=== PATIENT | male | born 1960 | race Caucasian/White ===

== ENCOUNTER 2024-01-07 13:26 | Emergency (ER) | payer MEDICARE, SELFPAY ==
[2024-01-07 13:30] VITALS: BP 163/96
[2024-01-07 15:45] VITALS: BP 158/96
[2024-01-07 15:46] VITALS: BMI 19.9
[2024-01-07] MEDS: TORADOL 15 MG IV (16:07)
[2024-01-07 16:23] LABS: % Basophils 0.8 % (0-2); % Eosinophils 1.4 % (0-6); % Immature Granulocytes 0.2 % (0-0.5); % Lymphocytes 35.1 % (20.5-51.1); % Monocytes 6.8 % (1.7-9.3); % Neutrophils 55.7 % (42.2-75.2); Absolute Basophils 0.1 10^3/uL (0-0.2); Absolute Eosinophils 0.1 10^3/uL (0-0.7); Absolute Monocytes 0.6 10^3/uL (0.1-0.6); Absolute Neutrophils 4.8 10^3/uL (1.4-6.5); Hematocrit 34.5 % (39.0-52.0); Hemoglobin 11.2 g/dL (13.0-18.0); Mean Corp Hgb Conc. 32.5 g/dL (33.0-37.0); Mean Corpuscular Hgb 24.8 pg (27.0-31.0); Mean Corpuscular Volume 76.3 fL (80.0-94.0); Mean Platelet Volume 10.1 fL (7.4-10.4); Nucleated Red Blood Cells % 0 % (-); Platelet Count 346 10^3/uL (130-400); Red Blood Cell Count 4.52 10^6/uL (4.70-6.10); White Blood Cell Count 8.7 10^3/uL (4.8-10.8)
[2024-01-07 16:43] LABS: ALT (SGPT) 15 U/L (0-50); AST (SGOT) 27 U/L (17-59); Albumin 4.5 g/dl (3.5-5.0); Alkaline Phosphatase 138 U/L (38-126); Blood Urea Nitrogen 8 mg/dl (9-20); Calcium 9.8 mg/dl (8.4-10.2); Carbon Dioxide 23 mmol/L (22-30); Chloride 91 mmol/L (98-107); Estimated Creatinine Clearance 85 ml/min; Glucose 87 mg/dl (70-99); Sodium 125 mmol/L (135-145); Total Bilirubin 0.5 mg/dl (0.2-1.3); Total Protein 7.5 g/dl (6.3-8.2); eGFR > 60.00
[2024-01-07] MEDS: ANUSOL HC 25 MG RECTAL (16:52)
--- NOTE | 2024-01-07 16:56 | ED.GENMED ---
History of Present Illness
General
Chief Complaint: Anal/Rectal Problem
Source: patient
Exam Limitations: none
Time Seen by Provider: 01/07/24 15:46
Nursing documentation reviewed up to this point in time: agreed with
Travel History
Have you had any contact with someone who has COVID-19?: No
Do you have any symptoms of coronavirus? Fever > 100 degrees, chills, cough, shortness of breath, sore throat, loss of taste or smell, muscle aches, or headache?: No
History of Present Illness
History of Present Illness:
Patient to ED wt complaint of painful rectal lump. States symptoms started 1 week ago. He continues to strain in attempt to pass stool and reports lump becomes larger. Also with complaint of low back pain. States he fell 3 weeks ago but did
not have discomfort until this week. Brought to ED by sister for eval.
Past History
Past History
ED Past Medical History: Other (History of heroin abuse)
ED Past Surgical History: Other
Social History
Tobacco: Non-smoker
Alcohol: None
Drug: Former user
Personal: Single
Review of Systems
Review of Systems
Allergies reviewed?: Yes
All Other Systems: ROS reviewed and negative except as documented in HPI and ROS
Constitutional: Reports no symptoms
EENT: Reports no symptoms
Respiratory: Reports no symptoms
Cardiac: Reports no symptoms
ABD/GI: Reports other (painful rectal lump)
: Reports no symptoms
Musculoskeletal: Reports joint pain (sacral pain)
Skin: Reports no symptoms
Neurological: Reports no symptoms
Psychiatric: Reports no symptoms
Phy Exam
General Physical Exam
General Presentation: well appearing and no apparent distress
General age: appears stated age
General Skin: warm and dry
General Habitus: normal
General Mental: alert
Gastrointestinal Exam
Gastrointestinal Exam: normal bowel sounds, non tender, soft, no organomegaly, non distended and no cva tenderness
Rectal Exam: normal external exam, normal sphincter tone, hemorrhoids (soft flat external hemorrhoids, no rectal tenderness), no rectal mass and no stool
Musculoskeletal Exam
Musculoskeletal Exam: full ROM and neuro vasc intact
Skin Exam
Skin Exam: normal color, warm/dry and no rash
Psychiatric Exam
Psychiatric Exam: normal mood/affect
Course
Orders/Labs/Results
Orders:
Orders
01/07/24 15:59
Lumbar Spine Complete, 4 View [CR Lumbar Spine Comp Min 4 Vw*] Urgent
Comment:
Reason For Exam: pain
Sacrum/Coccyx 2 View CR [CR Sacrum/coccyx Min 2 View] Urgent
Comment:
Reason For Exam: pain
01/07/24 16:01
Ketorolac [Toradol] 15 mg IV NOW STA
01/07/24 16:03
Complete Blood Count/With Diff Urgent
Comprehensive Metabolic Panel Urgent
01/07/24 16:08
Anusol Hc Suppository [Anusol Hc] 25 mg RECTAL NOW STA
Abnormal Lab Results
01/07/24
16:03
RBC 4.52 L 10^6/uL
(4.70-6.10)
Hgb 11.2 L g/dL
(13.0-18.0)
Hct 34.5 L %
(39.0-52.0)
MCV 76.3 L fL
(80.0-94.0)
MCH 24.8 L pg
(27.0-31.0)
MCHC 32.5 L g/dL
(33.0-37.0)
RDW 15.0 H %
(11.5-14.5)
Sodium 125 L mmol/L
(135-145)
Chloride 91 L mmol/L
(98-107)
BUN 8 L mg/dl
(9-20)
Alkaline Phosphatase 138 H U/L
(38-126)
01/07/24 16:03
01/07/24 16:03
Vital Signs
Initial and Last Documented VS:
Initial Vital Signs
Temp Pulse Resp BP Pulse Ox
97.5 F 69 18 163/96 100
01/07/24 13:30 01/07/24 13:30 01/07/24 13:30 01/07/24 13:30 01/07/24 13:30
Last Documented Vital Signs
Temp Pulse Resp BP Pulse Ox
97.5 F 71 18 158/96 100
01/07/24 13:30 01/07/24 15:50 01/07/24 13:30 01/07/24 15:45 01/07/24 15:46
*Critical Care Note
Total Time (30-74mins, 75-104mins- exclusive of procedures): Not Applicable
Update Note
Update Note:
No rectal mass noted. +hemorroids, no evidence of thrombosed hemorrhoid. recommend Anusol suppos and cream. Sacral fx noted on xray and is consisent withhis pain on exam. Will continue with tylenol prn. Hyponatremia noted. He is asymptomatic
of this. Has had prior episodes. Discussed findings with Dr. Vaughan. Will discharge home and he will follow closely with PCP. Recommend recheck of sodium level in 1 week. Patient and sister given instructions on s/s to return to ED, s/s
hyponatemia.
ED Attending Note
-
Portions of this chart may have been created with voice recognition software.� Occasional wrong word or��sound alike� substitutions may have occurred due to the inherent limitations of voice recognition software.
Discharge Plan
Departure
Patient Disposition: Home (Routine Discharge)
Date of Disposition: 01/07/24
Time of Disposition: 16:57
Patient with high blood pressure during this ER visit?: No
Condition: Fair
Covid-19: Not Applicable
Discharge Problem:
Hemorrhoids, internal, Closed sacral fracture
Instructions: Hemorrhoids (DC)
Prescriptions:
New
hydrocortisone acetate [Anusol-HC] 25 mg suppository
25 mg [place] DAILY PRN (Reason: hemorrhoids) Qty: 24 0RF
No Action
methadone 10 mg/mL Concentrate
150 mg PO DAILY
Patient Comments:
11/23/22: dose confirmed with [facility] . Last dose of 150 mg administered 11/22/22 at 0548.
11/22/2022: Pt states he cannot remember what clinic he goes to, but per previous med rec, pt used [facility] in [place]
05/01/2022: Pt goes to [facility] in [place]
Referrals:
David Bhakta MD [Active] - Call in 1-3 days for appt
NONE,* [Family Provider] -
Activity Restrictions/Additional Instructions:
Follow up with your Primary care provider as scheduled. As we discussed, your Sodium level was low today. This will need to be rechecked in 1 week. Return to the emergency department immediately for any weakness, confusion, lethargy.
Interventions
Interventions:
*Risk Screen - Suicide Last Done: 01/07/24 13:30
*General Assessment Last Done: 01/07/24 13:30
*Neglect/Abuse Screening Last Done: 01/07/24 13:30
ED- Fall Risk Assessment Last Done: 01/07/24 15:46
*ED COVID-19 Vaccine History Last Done: 01/07/24 13:30
*Nursing Disposition Last Done: 01/07/24 17:17
VK-Qokvmn-Kahypskcef Assessment Last Done: 01/07/24 17:18
ED-Skin Assessment Last Done: 01/07/24 15:46
Discharge Date and Time
Discharge Date/Time: 01/07/24 17:19
Print Language: SOU[place]UDANESE
== END 2024-01-07 17:19 | disposition home or self-care (01) ==
LOC: EMR 13:26
PROVIDERS: Nurse Practitioner; EMERGENCY PHYSICIAN Emergency Medicine
DX: K64.8 Other hemorrhoids (principal); S32.10XA Unspecified fracture of sacrum, initial encounter for closed fracture; X58.XXXA Exposure to other specified factors, initial encounter; E87.1 Hypo-osmolality and hyponatremia
CPT/HCPCS: 99284; 96374; 72110; 72220; 80053; 85025

== ENCOUNTER 2025-07-21 11:44 | Inpatient (IN) | payer MEDICARE, SELFPAY ==
[2025-07-21] VITALS (9 sets, daily range): BP systolic 144–180; BP diastolic 80–106; BMI 18.0
[2025-07-21] MEDS: DILAUDID 1 MG IV ×2 (09:10→10:18)
--- NOTE | 2025-07-21 09:10 | ED.GENMED ---
History of Present Illness
<Joseluis Soto PA-C - Last Filed: 07/21/25 15:35>
General
Chief Complaint: Fall
Time Seen by Provider: 07/21/25 08:58
History of Present Illness
History of Present Illness:
65-year-old male with history of hypertension and chronic pain on methadone presents to the emergency department for evaluation of right hip pain after mechanical fall. States he slipped on tile in his home and fell onto his right hip. He thinks
that he did strike his head but denies LOC or current headaches. Unable to move the right lower extremity secondary to pain. Denies any low back pain or lower extremity paresthesias.
Past History
<Joseluis Soto PA-C - Last Filed: 07/21/25 15:35>
Past History
ED Past Medical History: Other (History of heroin abuse)
ED Past Surgical History: Other
Social History
Tobacco: Non-smoker
Alcohol: None
Drug: Former user
Personal: Single
Review of Systems
<Joseluis Soto PA-C - Last Filed: 07/21/25 15:35>
Review of Systems
Allergies reviewed?: Yes
All Other Systems: ROS reviewed and negative except as documented in HPI and ROS
Phy Exam
<Joseluis Soto PA-C - Last Filed: 07/21/25 15:35>
Physical Exam
Physical Exam:
GEN: Well appearing, NAD, WDWN
Eyes: PERRLA, EOMs intact, no scleral icterus
HENT: NCAT, oral mucosa moist
Lungs: CTAB, no wheezes, rales, rhonchi, normal chest wall excursion
Cardiac: RRR, no M/R/G, no peripheral edema. Radial pulses 2+ bilat
Abdomen: S, NT, ND, NABS, no masses or hepatosplenomegaly
Neuro: AO x 3, no focal deficits to BUE/BLE, normal sensation throughout
MSK: Patient holding legs in full hip flexion unable to manually range either leg without pain. No reproducible tenderness to bilateral hips, neurovascularly intact to the lower extremities
Skin: No rashes, petechiae. Normal color, no pallor or jaundice.
Psych: Calm, cooperative, proper hygiene
Course
<Joseluis Soto PA-C - Last Filed: 07/21/25 15:35>
Orders/Labs/Results
Orders:
Orders
07/21/25 09:05
CT Head W/o Iv Contrast Urgent
Comment:
Reason For Exam: fall, head injury on Plavix
CR Hip - RT without Pel 1 Vw Urgent
Reason For Exam: fall, R hip pain
07/21/25 09:06
HYDROmorphone [Dilaudid] 1 mg IV NOW STA
07/21/25 09:07
Complete Blood Count/No Diff Urgent
Comprehensive Metabolic Panel Urgent
Cortisol, Random Urgent
Comment: ADD ON
TSH Urgent
Comment: ADD ON
07/21/25 10:12
HYDROmorphone [Dilaudid] 1 mg IV NOW STA
07/21/25 10:13
HYDROmorphone [Dilaudid] 1 mg .ROUTE .STK-MED ONE
07/21/25 10:58
ORTHOPEDIC CONSULT Urgent
Consulting Provider: Steve Hodge
Was physician already notified: Yes
Midazolam HCl [Versed] 2 mg IV NOW STA
CR Hip - RT w/wo Pel 2-3 Vw* Urgent
Comment:
Reason For Exam: hip fx
Include a pelvis x-ray?: Yes
07/21/25 11:20
Admit/Transfer Patient As Directed
Co-Sign Provider:
Level of Care: Inpatient admission
Assign to:: Medical/Surgical
Physician / Group: [facility]
Diagnosis: Right femoral neck fracture
Reason for Hospitalization: Orthopedic surgery
Expected length of stay greater than two midnights?: Yes
ELOS- Estimated Length of Stay in days: 3
I certify the patient meets the requirements for IP care: Yes
PRN Pain Medication Management As Directed
May give lesser potent ordered pain med per pt: Yes
preference::
Protocol:: Medication orders for pain may be administered in a
manner that supports deferring to patient preference
when the pt is:
- Requesting an ordered lesser potent pain medication.
Least to most potent pain medications are defined
as: acetaminophen < NSAID < tramadol < opioids
(morphine, oxycodone, hydromorphone).
- Requesting a lesser dose of the same medication IF
ORDERED.
- Requesting a less intrusive route of administration
if both routes are prescribed by the provider (PO <
IV).
07/21/25 11:21
Code Status As Directed
Resuscitation Status: Do not resuscitate
Reached after discussion with pt or family/Healthcare POA: Yes
DNR Bracelet Application ONCE
07/21/25 11:26
EKG [Electrocardiogram (*1)] Routine
Reason for Study: PreOp
07/21/25 11:32
Add On- LAB Routine
Tests Added?: TSH, cortisol
07/21/25 13:35
Acetaminophen [Tylenol] 650 mg PO Q6HPRN PRN
07/21/25 13:35
Activity As Directed
Activity Level: Bedrest
Sequential Compression Device [Pneumatic Compression Sleeves] As Directed
Type: Knee high
DX Deep Vein Thrombosis Video Routine
07/21/25 13:45
0.45% Sodium Chloride 1000 ml [0.45%NaCl] 1,000 ml IV 75 mls/hr
07/22/25 06:00
Complete Blood Count/With Diff IN AM
Abnormal Lab Results
07/21/25
09:07
WBC 15.4 H 10^3/uL
(4.8-10.8)
RBC 4.54 L 10^6/uL
(4.70-6.10)
Hgb 11.8 L g/dL
(13.0-18.0)
Hct 37.9 L %
(39.0-52.0)
MCH 26.0 L pg
(27.0-31.0)
MCHC 31.1 L g/dL
(33.0-37.0)
RDW 15.9 H %
(11.5-14.5)
Glucose 112 H mg/dl
(70-99)
Alkaline Phosphatase 129 H U/L
(38-126)
07/21/25 09:07
07/21/25 09:07
Vital Signs
Initial and Last Documented VS:
Initial Vital Signs
Temp Pulse Resp BP Pulse Ox
94.4 F L 65 18 144/100 94
07/21/25 09:00 07/21/25 09:00 07/21/25 09:00 07/21/25 09:00 07/21/25 09:00
Last Documented Vital Signs
Temp Pulse Resp BP Pulse Ox
97.7 F 80 17 163/86 97
07/21/25 15:20 07/21/25 15:20 07/21/25 15:20 07/21/25 15:20 07/21/25 15:20
<Garht Schwarz DO - Last Filed: 07/21/25 10:41>
Orders/Labs/Results
Orders:
Orders
07/21/25 09:05
CT Head W/o Iv Contrast Urgent
Comment:
Reason For Exam: fall, head injury on Plavix
CR Hip - RT without Pel 1 Vw Urgent
Reason For Exam: fall, R hip pain
07/21/25 09:06
HYDROmorphone [Dilaudid] 1 mg IV NOW STA
07/21/25 09:07
Complete Blood Count/No Diff Urgent
Comprehensive Metabolic Panel Urgent
Cortisol, Random Urgent
Comment: ADD ON
TSH Urgent
Comment: ADD ON
07/21/25 10:12
HYDROmorphone [Dilaudid] 1 mg IV NOW STA
07/21/25 10:13
HYDROmorphone [Dilaudid] 1 mg .ROUTE .STK-MED ONE
07/21/25 10:58
ORTHOPEDIC CONSULT Urgent
Consulting Provider: Steve Hodge
Was physician already notified: Yes
Midazolam HCl [Versed] 2 mg IV NOW STA
CR Hip - RT w/wo Pel 2-3 Vw* Urgent
Comment:
Reason For Exam: hip fx
Include a pelvis x-ray?: Yes
07/21/25 11:20
Admit/Transfer Patient As Directed
Co-Sign Provider:
Level of Care: Inpatient admission
Assign to:: Medical/Surgical
Physician / Group: Fredrick
Diagnosis: Right femoral neck fracture
Reason for Hospitalization: Orthopedic surgery
Expected length of stay greater than two midnights?: Yes
ELOS- Estimated Length of Stay in days: 3
I certify the patient meets the requirements for IP care: Yes
PRN Pain Medication Management As Directed
May give lesser potent ordered pain med per pt: Yes
preference::
Protocol:: Medication orders for pain may be administered in a
manner that supports deferring to patient preference
when the pt is:
- Requesting an ordered lesser potent pain medication.
Least to most potent pain medications are defined
as: acetaminophen < NSAID < tramadol < opioids
(morphine, oxycodone, hydromorphone).
- Requesting a lesser dose of the same medication IF
ORDERED.
- Requesting a less intrusive route of administration
if both routes are prescribed by the provider (PO <
IV).
07/21/25 11:21
Code Status As Directed
Resuscitation Status: Do not resuscitate
Reached after discussion with pt or family/Healthcare POA: Yes
DNR Bracelet Application ONCE
07/21/25 11:26
EKG [Electrocardiogram (*1)] Routine
Reason for Study: PreOp
07/21/25 11:32
Add On- LAB Routine
Tests Added?: TSH, cortisol
07/21/25 13:35
Acetaminophen [Tylenol] 650 mg PO Q6HPRN PRN
07/21/25 13:35
Activity As Directed
Activity Level: Bedrest
Sequential Compression Device [Pneumatic Compression Sleeves] As Directed
Type: Knee high
DX Deep Vein Thrombosis Video Routine
07/21/25 13:45
0.45% Sodium Chloride 1000 ml [0.45%NaCl] 1,000 ml IV 75 mls/hr
07/22/25 06:00
Complete Blood Count/With Diff IN AM
Abnormal Lab Results
07/21/25
09:07
WBC 15.4 H 10^3/uL
(4.8-10.8)
RBC 4.54 L 10^6/uL
(4.70-6.10)
Hgb 11.8 L g/dL
(13.0-18.0)
Hct 37.9 L %
(39.0-52.0)
MCH 26.0 L pg
(27.0-31.0)
MCHC 31.1 L g/dL
(33.0-37.0)
RDW 15.9 H %
(11.5-14.5)
Glucose 112 H mg/dl
(70-99)
Alkaline Phosphatase 129 H U/L
(38-126)
07/21/25 09:07
07/21/25 09:07
Vital Signs
Initial and Last Documented VS:
Initial Vital Signs
Temp Pulse Resp BP Pulse Ox
94.4 F L 65 18 144/100 94
07/21/25 09:00 07/21/25 09:00 07/21/25 09:00 07/21/25 09:00 07/21/25 09:00
Last Documented Vital Signs
Temp Pulse Resp BP Pulse Ox
97.7 F 80 17 163/86 97
07/21/25 15:20 07/21/25 15:20 07/21/25 15:20 07/21/25 15:20 07/21/25 15:20
<Joseluis Soto PA-C - Last Filed: 07/21/25 15:35>
MDM/Problems Addressed
MDM/Problems Addressed:
Imaging reveals a right femoral neck fracture, patient will require hospitalization for further management of this
<Joseluis Soto PA-C - Last Filed: 07/21/25 15:35>
*Pulse Oximetry
SaO2: 94
Oxygen Mode of Delivery: Room air
Patient hypoxic: no
*Critical Care Note
Total Time (30-74mins, 75-104mins- exclusive of procedures): Not Applicable
ED Attending Note
<Joseluis Soto PA-C - Last Filed: 07/21/25 15:35>
-
Portions of this chart may have been created with voice recognition software.� Occasional wrong word or��sound alike� substitutions may have occurred due to the inherent limitations of voice recognition software.
<Garth Schwarz DO - Last Filed: 07/21/25 10:41>
ED Attending Note
Patient seen and examined by attending physician: Yes
I performed the substantive portion of visit, reviewed & personally made and approve the management plan that is documented in note by myself or CORNELIUS.: Yes
ED Attending Note:
I agree with Panfilo's note.
Pt with right hip pain after a fall. Pt holding right leg in flexed position for comfort. + tender to palpation.
Lungs: clear b/l
Heart: rrr, no murmur
N/V intact
+ femoral neck fracture on imaging. Admit for ORIF
Discharge Plan
Departure
Patient Disposition: Admit
Date of Disposition: 07/21/25
Time of Disposition: 10:53
Admit to: Med/Surg
Presentation/result/management discussed w/ accepting MD/DO: Hospitalist
Discharge Problem:
Closed fracture of neck of right femur
Interventions
Interventions:
*Risk Screen - Suicide Last Done: 07/21/25 14:33
*General Assessment Last Done: 07/21/25 09:00
*Neglect/Abuse Screening Last Done: 07/21/25 09:00
*ED- Fall Risk Assessment Last Done: 07/21/25 09:00
*ED COVID-19 Vaccine History Last Done: 07/21/25 14:23
*ED Influenza Vaccine History Last Done: 07/21/25 09:00
*Nursing Disposition Last Done: 07/21/25 13:25
ED-Musculoskeletal Assessment Last Done: 07/21/25 09:06
ED- Neurological Assessment Last Done: 07/21/25 09:00
ED-Skin Assessment Last Done: 07/21/25 09:00
Discharge Date and Time
Discharge Date/Time: 07/21/25 13:25
[2025-07-21 09:20] LABS: Hematocrit 37.9 % (39.0-52.0); Hemoglobin 11.8 g/dL (13.0-18.0); Mean Corp Hgb Conc. 31.1 g/dL (33.0-37.0); Mean Corpuscular Volume 83.5 fL (80.0-94.0); Platelet Count 339 10^3/uL (130-400); Red Cell Dist. Width 15.9 % (11.5-14.5)
[2025-07-21 09:40] LABS: ALT (SGPT) 19 U/L (0-50); AST (SGOT) 25 U/L (17-59); Albumin 4.3 g/dl (3.5-5.0); Alkaline Phosphatase 129 U/L (38-126); Blood Urea Nitrogen 12 mg/dl (9-20); Calcium 9.4 mg/dl (8.4-10.2); Carbon Dioxide 26 mmol/L (22-30); Chloride 100 mmol/L (98-107); Estimated Creatinine Clearance 58 ml/min; Glucose 112 mg/dl (70-99); Potassium 4.1 mmol/L (3.5-5.1); Sodium 136 mmol/L (135-145); Total Protein 7.1 g/dl (6.3-8.2); eGFR > 60.00
[2025-07-21] MEDS: VERSED 2 MG IV (11:07)
--- NOTE | 2025-07-21 11:22 | HPS.HSE ---
Addendum entered and electronically signed by Joaquín Alcala DO 07/21/25 12:06:
Apparently patient has been on aspirin and Plavix for presumed ischemic changes noted on outpatient MRI done at [facility] [address]. We do not have access to those records.
Will hold further Plavix in preparation for hip fracture repair. Discussed with orthopedics.
Original Note:
Family Physician
-
Family Physician: Basilia Quinn DO
Chief Complaint
-
Fall, right hip pain
History of Present Illness
65-year-old male sustained a fall earlier this morning with subsequent right hip pain. No loss of consciousness. Reportedly struck his head.
Information gathered by speaking with his sister who is at the bedside. Patient currently somewhat sedated due to sedatives in the emergency room.
No history of fractures in the past.
Ambulates with rolling walker.
Medical History
Past Medical History
Past Medical History: Reports Other
Additional Past Medical History:
Chronic pain syndrome
History of heroin abuse
Lumbar spinal stenosis
Mild cognitive impairment
Past Surgical History: Reports None
Social History
Tobacco: Smoker
Alcohol: None
Drug: None
Family History
Family History: Not pertinent
Allergies / Home Medications
Allergies reflects when Allergies were last updated in [facility].
Home Medications with original date entered in [facility]
Allergy/Medication List:
Allergies
Allergy/AdvReac Type Severity Reaction Status Date / Time
No Known Allergies Allergy Verified 11/22/22 15:16
Home Medications
methadone 10 mg/mL oral concentrate 150 mg PO DAILY WITHDRAWAL 05/01/22
hydrocortisone acetate 25 mg rectal suppository (Anusol-HC) 25 mg [place] DAILY PRN hemorrhoids #24 ea 01/07/24
Review of Systems
-
History Source: Patient
A 12 point ROS was completed and negative except as noted: Yes
Physical Exam
Vital Signs
Vital Signs
Temp Pulse Resp BP Pulse Ox
94.4 F L 71 25 153/101 91
07/21/25 09:00 07/21/25 09:30 07/21/25 09:30 07/21/25 10:21 07/21/25 10:30
Physical Exam
General: Appears in Distress and Cachectic
HEENT: NormoCephalic, Anicteric and Moist mucous membranes
Respiratory: Clear
Cardiac: S1/S2 and Regular Rhythm
GI: Soft, Non Tender and Non Distended
Musculoskeletal: No Clubbing, No Cyanosis, No Edema and Other (Lower extremities are flexed at the hip and knees)
Skin: Warm and Dry
Neuro: Sedated
Hematologic/Lymphatic: No Lymphadenopathy
Psych: Calm
Laboratory Results
-
07/21/25 09:07
07/21/25 09:07
Laboratory Results
Total Bilirubin 0.8 mg/dl (0.2-1.3) 07/21/25 09:07
AST 25 U/L (17-59) 07/21/25 09:07
ALT 19 U/L (0-50) 07/21/25 09:07
Alkaline Phosphatase 129 U/L (38-126) H 07/21/25 09:07
Impression/Plan
-
Acute traumatic right femoral neck fracture -due to fall and suspected underlying osteoporosis. Admit to [facility]. Consult orthopedics.
Patient's sister denies history of cardiac disease. Check preoperative EKG.
Continue analgesics.
Will need outpatient evaluation and treatment of osteoporosis.
Elevated blood pressure -suspect severe pain induced blood pressure elevation as well as underlying untreated or undiagnosed essential hypertension. Reassess blood pressure after analgesics.
Hypothermia -recheck temperature. Check TSH, cortisol.
Leukocytosis -suspect leukemoid reaction, doubt underlying infection. Monitor for now.
Normocytic anemia -appears chronic. Unclear etiology. Monitor for now. Hemoglobin appears to be at baseline.
Tobacco dependence -cessation advised.
Opiate dependence -history of heroin abuse. Resume daily methadone, dose to be confirmed by pharmacy.
Mild cognitive impairment
DNR -confirmed with patient's sister.
Patient's sister Elisa updated at the bedside. All questions answered.
--- NOTE | 2025-07-21 12:37 | CON.ORTHO ---
Consultation
-
Date/Time Consultation Requested: Jul 17
Date/Time Consultation Performed: Jul 17
Requesting Provider: ROBERT Soto
Performing Provider: Rommel for [facility]itting
Reason for Consultation: Right hip fracture
Consultation - Orthopedics
History
History of Present Illness:
65 y/o male who presented to the [facility] after sustaining a fall earlier this morning with subsequent right hip pain. No loss of consciousness, however reportedly did not strike his head. much of the history gathered by speaking with his sister, who
is at the bedside. Patient currently a bit sedated due to pain medicine ministration in the emergency room. upon close questioning he does report some history of right hip discomfort prior to the fall. He also has a significant low back history
with spinal stenosis. I am also told that they believe he may have recently experienced a CVA due to ischemic changes noted on MRI at [facility]. He was started on Plavix (currently held) and had a neurology follow-up scheduled tomorrow. Due
to x-ray findings in the ED we have been requested in consult
Past Medical History:
Chronic pain syndrome
History of heroin abuse
Lumbar spinal stenosis
Mild cognitive impairment
Hx of CVA?
Past Surgical History:
None reported
Social History:
Tobacco: Smoker
Alcohol: None
Drug: None currently, but remote heroin abuse history
Family History:
Family History: Not pertinent
ROS:
12 point negative except for those mentioned in the HPI
Allergies / Home Medications
Allergy/AdvReac Type Severity Reaction Status Date / Time
No Known Allergies Allergy Verified 11/22/22 15:16
�Medication �Instructions �Recorded
methadone 10 mg/mL oral concentrate 155 mg PO DAILY WITHDRAWAL 05/01/22
aspirin 81 mg tablet,delayed 81 mg PO DAILY Blood Clot 07/21/25
release Prevention/Tx
atorvastatin 40 mg tablet (Lipitor) 40 mg PO DAILY High Cholesterol 07/21/25
clopidogrel 75 mg tablet (Plavix) 75 mg PO DAILY Blood Clot 07/21/25
Prevention/Tx
Vital Signs / Lab Results
Temp Pulse Resp BP Pulse Ox
94.4 F L 83 25 179/104 92
07/21/25 09:00 07/21/25 11:44 07/21/25 09:30 07/21/25 12:19 07/21/25 11:15
07/21/25 09:07
07/21/25 09:07
Assessment / Plan
PE: chronically ill appearing gentleman appearing a bit older than stated age. AAO x 3. Currently at bed rest lying on his right side with knee flexed. Right hip skin intact. Generalized pain about the right hip to palpation. Deferred ROM due to
known fracture. Positive logroll RLE. Knee nontender. Calf soft nontender. Neurovascularly intact distally RLE
Xrays: RIGHT femoral neck fracture in the face of some mild OA
Impression: JOSE
Plan: I discussed at length with the patient and his sister bedside. Reviewed the nature of his right hip fracture and our treatment recommendations. discussed all nonoperative and operative management including the RBAs of each approach. He does
report some mild hip discomfort prior to the fall. Unfortunately x-rays do reveal a femoral neck fracture. In order to mobilize him as soon as possible it would be recommended to proceed with a prosthetic replacement, in the form of
hemiarthroplasty versus total hip arthroplasty. we discussed the potential need for total hip arthroplasty down the line if they choose to proceed with hemiarthroplasty. Due to recent medical events, including a questionable CVA currently on Plavix
(which has been held by Dr. Alcala in anticipation of surgery), recommendation for proceeding with regional anesthesia would be 5 days for Plavix washout. Appears as though health records from [place] are being requested. Proceeding with either
hemiarthroplasty or total arthroplasty we did review the postop and rehab course associated with both, including the need for hip precautions. will appreciate CM assistance with disposition postoperatively. Orthopedics will continue to follow along
and discuss with attending hospitalist, Dr. Alcala and consultants regarding his being optimized for surgery. I have marked his right hip as the planned surgical site. surgical and blood consents have been signed, scanned to [facility], and will be
placed to the patient's chart once a floor bed is available. He has been consented for hemiarthroplasty versus total hip arthroplasty pending a final decision. Based on OR and surgeon availability attending surgeon may vary, but he has been
consented for all possibilities. Dr. Hodge, consulted surgeon to help facilitate. I would anticipate, at the earliest, surgery this weekend, but more likely early next week. patient will remain at bedrest for now. He may have a diet until
surgical date is planned. T&S requested, and will likely need to be repeated preoperatively. Will follow
[2025-07-21 15:44] LABS: Cortisol, Random 47.0 ug/dl; TSH 1.67 uIU/ml (0.47-4.68)
[2025-07-21] MEDS: 0.45%NACL 1000 IV (16:02)
[2025-07-21] MEDS: DILAUDID 0.5 MG IV ×3 (16:57→23:30)
--- NOTE | 2025-07-21 22:46 | PTCARENOTE ---
Patient resting comfortably and c/o pain in right hip with movement. Pain medication given. Patient noted to have poor PO intake, patient did not eat any dinner. Bed alarm maintained. No attempts made by patient to get OOB. 0.45% NS infusing.
Transfer of care given to Sandra Alonzo RN at 2250.
[2025-07-22] MEDS: DILAUDID 0.5 MG IV ×5 (01:09→21:05)
[2025-07-22 04:31] VITALS: BP 150/94
[2025-07-22] MEDS: 0.45%NACL 1000 IV (04:33)
[2025-07-22 07:14] VITALS: BP 167/91
[2025-07-22 07:41] LABS: Hematocrit 36.8 % (39.0-52.0); Hemoglobin 11.7 g/dL (13.0-18.0); Mean Corp Hgb Conc. 31.8 g/dL (33.0-37.0); Mean Corpuscular Volume 80.9 fL (80.0-94.0); Nucleated Red Blood Cells % 0 % (-); Platelet Count 278 10^3/uL (130-400); Red Cell Dist. Width 15.8 % (11.5-14.5)
--- NOTE | 2025-07-22 09:10 | W.PN.HOSP.TC ---
Today's Communication/Plan
-
Await orthopedics
Assessment / Plan
Assessment / Plan
Gen-awake, alert, NAD
HEENT-NC, AT, anicteric, clear oral mm
Neck-supple
CV-reg, no M, +S1/S2
Lungs-clear B/L
Abd-soft, NT, ND
Ext-no edema
Musculoskeletal-no cyanosis, clubbing, lower extremities are curled up
Skin-warm and dry
Neuro-grossly non-focal
Psych-calm, cooperative
Acute traumatic right femoral neck fracture -currently n.p.o., awaiting possible surgery today. Continue analgesics. Orthopedics following.
Preoperative EKG shows normal sinus rhythm, QTc prolonged, nonspecific ST T wave changes. Appears to be at acceptable risk for orthopedic surgery.
History of strokes -apparently diagnosed on recent MRI 3 weeks ago, approximately June 26. Do not have access to records. Has been on aspirin and Plavix for the past 3 weeks, started by PCP, with plans for 21 days of dual antiplatelet therapy.
Moving forward can discontinue Plavix and continue aspirin. Discussed with patient's sister.
Elevated blood pressure -suspect undiagnosed/untreated essential hypertension, especially in light of recent diagnosis of strokes. Unfortunately family does not check his blood pressure at home. Will initiate nifedipine. Recommend close
outpatient follow-up. Suspect acute pain is exacerbating his blood pressure.
Hypothermia -resolved. TSH and cortisol normal.
Normocytic anemia -presumably chronic. Monitor for now.
Tobacco dependence -smoking cessation advised.
Opiate dependence -history of heroin abuse. Continue methadone.
Underweight -BMI 18. High risk for malnutrition. Consult nutrition.
Mild cognitive impairment
DNR
Dispo -anticipate SNF on discharge.
Updated patient's sister Eliane Duff on the phone, . Eliane asked that orthopedics contact her for any decision making.
Anticipated Discharge: > 48 hours
Subjective/Interval History
-
Date of Service: July 22, 2025
Patient seen and examined. No complaints.
Objective Data
-
Labs:
Laboratory Results
07/22/25
06:58
WBC 14.4 H
Hgb 11.7 L
Hct 36.8 L
Plt Count 278
Vital Signs:
Vital Signs
Temp Pulse Resp BP Pulse Ox
97.8 F 72 18 167/91 94
07/22/25 07:14 07/22/25 07:14 07/22/25 07:14 07/22/25 07:14 07/22/25 07:14
I&O
07/21/25 07/22/25 07/23/25
06:59 06:59 06:59
Intake Total 1080 / 1080
Output Total 200 / 200
Balance 880 / 880
Review of Systems
-
History Source: Patient
All other systems: Reviewed and negative
[2025-07-22] MEDS: LOW STRENGTH ASPIRIN 81 MG PO (09:39)
[2025-07-22] MEDS: METHADONE 100 MG/10 ML 155 MG PO (09:39)
[2025-07-22] MEDS: PROCARDIA XL (EXTENDED RELEASE) 30 MG PO (09:40)
--- NOTE | 2025-07-22 10:06 | W.PN.UPDATE ---
Update Note
Progress Note Update
Patient has right hip femoral neck fracture and Dr Parker plans on fixing later this afternoon with a hemiarthroplasy. NPO and elise cargo and container inspector to OR, Surgical consent signed and surgical location marked.
[2025-07-22 13:49] VITALS: BMI 18.0
[2025-07-22 15:11] VITALS: BP 112/54
--- NOTE | 2025-07-22 16:09 | W.PN.UPDATE ---
Update Note
Progress Note Update
I evaluated the patient at bedside. His sister was present as well. The patient was resting comfortably in bed supine with his hips flexed and ankles crossed. He denies severe pain. He has not been needing opioid pain medication. I discussed
with the patient that the tentative plan of surgery at 330-4 PM has been postponed after discussion of the OR. The OR is currently running multiple scheduled and add-on cases and is unclear about start time, possibly later in the evening. I
discussed with the patient and his sister timing for surgery in light of this, that it may be safer for the case itself and his post operative recovery not to be done in the middle of the night. It would also give him a chance for plavix to wash
out. They agreed to plan to postpone surgery until tomorrow or Saturday AM pending availablity of staff and OR.
[2025-07-22 22:55] VITALS: BP 132/85
[2025-07-23] VITALS (15 sets, daily range): BP systolic 90–168; BP diastolic 59–95; PULSE 65–96; O2SAT 96
--- NOTE | 2025-07-23 04:27 | W.PN.UPDATE ---
Update Note
Progress Note Update
Patient with RIGHT femoral neck fracture. Has been consented to RIGHT (likely) hemiarthroplasty vs. AL. Hemiarthroplasty likely more appropriate given patient's overall developing clinical picture, including cognitive impairment (for following
post-op precautions). Consent signed and scanned to chart. Plan was yesterday via Dr. Parker, but due to OR availability, was pushed to either today (? Fede vs. Kurt?) or tomorrow AM (Elena). If Dr. Mistry is able to accommodate a new consent will
be needed. Updated consent obtained via phone (via message to his sister and POA, Elisa, who I spoke to previously and consented to surgery) and RN witnessed for Drs. Hicks/Elena. Patient remains contracted at the right hip/knee. Appreciate the
primary team with their work-up. Plavix on hold as of Saturday. Plan will be for GA given surgery to likely take place before 5 day wash-out period needed for regional anesthesia. Patient to remain at bedrest for now. DNVI RLE. Surgical site
previously marked. Tentative orders placed for today, including NPO. T&S intact. Surgery based on OR and surgeon availability. Will follow
[2025-07-23] MEDS: METHADONE 100 MG/10 ML 155 MG PO (07:52)
[2025-07-23] MEDS: LIPITOR 40 MG PO (07:53)
[2025-07-23] MEDS: PROCARDIA XL (EXTENDED RELEASE) 30 MG PO (07:53)
[2025-07-23] MEDS: LOW STRENGTH ASPIRIN 81 MG PO (07:53)
[2025-07-23 08:11] LABS: Hematocrit 35.3 % (39.0-52.0); Hemoglobin 11.2 g/dL (13.0-18.0); Mean Corp Hgb Conc. 31.7 g/dL (33.0-37.0); Mean Corpuscular Volume 81.3 fL (80.0-94.0); Nucleated Red Blood Cells % 0 % (-); Platelet Count 277 10^3/uL (130-400); Red Cell Dist. Width 16.0 % (11.5-14.5)
--- NOTE | 2025-07-23 08:41 | W.PN.HOSP.TC ---
Today's Communication/Plan
-
Await surgery
Assessment / Plan
Assessment / Plan
Gen-awake, alert, NAD
HEENT-NC, AT, anicteric, clear oral mm
Neck-supple
CV-reg, no M, +S1/S2
Lungs-clear B/L
Abd-soft, NT, ND
Ext-no edema
Musculoskeletal-no cyanosis, clubbing, bilateral lower extremities are curled up
Skin-warm and dry
Neuro-grossly non-focal
Psych-calm, cooperative
Acute traumatic right femoral neck fracture -currently n.p.o., awaiting possible surgery today. Continue analgesics. Orthopedics following.
Preoperative EKG shows normal sinus rhythm, QTc prolonged, nonspecific ST T wave changes. Appears to be at acceptable risk for orthopedic surgery.
History of strokes -apparently diagnosed on recent MRI 3 weeks ago, approximately June 26. Do not have access to records. Has been on aspirin and Plavix for the past 3 weeks, started by PCP, with plans for 21 days of dual antiplatelet therapy.
Moving forward can discontinue Plavix and continue aspirin. Discussed with patient's sister.
Elevated blood pressure -suspect undiagnosed/untreated essential hypertension, especially in light of recent diagnosis of strokes. Unfortunately family does not check his blood pressure at home. Continue Procardia XL. Recommend close outpatient
follow-up. Suspect acute pain is exacerbating his blood pressure.
Hypothermia -resolved. TSH and cortisol normal.
Normocytic anemia -presumably chronic. Monitor for now.
Tobacco dependence -smoking cessation advised.
Opiate dependence -history of heroin abuse. Continue methadone.
Underweight -BMI 18. High risk for malnutrition. Mud Mixer consulted and following.
Mild cognitive impairment
DNR
Dispo -anticipate SNF on discharge.
Updated patient's sister Eliane Duff on the phone, . Elinae asked that orthopedics contact her for any decision making.
Anticipated Discharge: 24 - 48 hours
Subjective/Interval History
-
Date of Service: July 23, 2025
Patient seen and examined. Denies pain. No complaints.
Objective Data
-
Labs:
Laboratory Results
07/23/25
06:16
WBC 10.5
Hgb 11.2 L
Hct 35.3 L
Plt Count 277
Vital Signs:
Vital Signs
Temp Pulse Resp BP Pulse Ox
97.9 F 58 16 162/95 99
07/23/25 07:48 07/23/25 07:48 07/23/25 07:48 07/23/25 07:48 07/23/25 07:48
I&O
07/22/25 07/23/25 07/24/25
06:59 06:59 06:59
Intake Total 1080 / 1080 907 / 907
Output Total 200 / 200
Balance 880 / 880 907 / 907
Review of Systems
-
History Source: Patient
All other systems: Reviewed and negative
--- NOTE | 2025-07-23 09:31 | PTCARENOTE ---
Pt transported to OR via bed AAOX2-3. Pt easily reoriented. HCG bath provided and nasal antiseptic swab done.
--- NOTE | 2025-07-23 14:00 | PTCARENOTE ---
Pt received from the PACU via bed. Transport was w/o incident. Pt is Awake and alert w/ forgetfulness. HRR, lungs are clear, Resp. easy at 97%RA. Pt's Right Hip with Antibacterial dressing intact with small amount of bloody drainage noted. VSS, Pt
is afebrile. Pt instructed on plan of care. Pt verbalized understanding of instructions. Call gentile is within reach.
--- NOTE | 2025-07-23 14:07 | CM ---
late note from 07/22
patient seen with sister Eliane
IA completed-obtained by Eliane
Lives in 1 story home with mother
PLOF: Independent with cane
DME: C[employer]
Denies VN/was current with outpatient therapy
pcp: Deborah Potter
Pharmacy: [address] [place]
PLAN: OR 07/23, CM to follow for discharge planning needs
[2025-07-23] MEDS: TYLENOL 650 MG PO (14:19)
[2025-07-23] MEDS: NSS 1000 IV (14:29)
--- NOTE | 2025-07-23 14:46 | PTCARENOTE ---
Report given to Evy on , pt been transferred to room 2108 postop. Belongings send down with tech.
[2025-07-23] MEDS: ANCEF 5 IV (18:54)
[2025-07-23] MEDS: ASPIRIN 325 MG PO (18:54)
[2025-07-23] MEDS: BACTROBAN 2% OINTMENT 1 APPLIC NASAL (20:29)
[2025-07-23] MEDS: COLACE PO (20:30)
[2025-07-23] MEDS: SENOKOT PO (20:30)
[2025-07-24] VITALS (7 sets, daily range): BP systolic 112–169; BP diastolic 67–93; PULSE 72–74; O2SAT 99
[2025-07-24] MEDS: DILAUDID 0.5 MG IV ×4 (00:13→20:20)
[2025-07-24] MEDS: ANCEF 5 IV (02:36)
--- NOTE | 2025-07-24 08:24 | W.PN.ORTHO ---
Today's Communication / Plan
-
65-year-old male POD #1 Right Hip Toni 07/23/[address] Mistry.
- WBAT RLE w/ use of walker for ambulatory assistance.
- PT/OT; THP's. Patient is unable to tolerate abductor pillow lying in bed. Will attempt a knee immobilizer; order placed. Please stress the importance of posterior hip precautions as patient demonstrates limited compliance.
- DVT Prophylaxis: Discussed with Dr. Alcala. D/C Plavix. Will proceed with ASA 325mg once daily x 30 days, then will resume ASA 81mg once daily.
- Pain control per primary team. Ice therapy for edema/pain.
- Appreciate CM regarding D/C planning.
- Orthopedic surgery will continue to follow along. Discussed with sister Eliane regarding post-operative plan of care.
Assessment
.
Distal Motor Intact: Yes
Dressing:
Primaseal dressing with mild contained bloody drainage about the middle aspect.
Patient lying in bed with bilateral knees and hips flexed. No significant pain with gentle logroll.
Calf is soft and nontender to palpation.
Assessment:
POD #1 Right Hip Hemiarthroplasty 07/23/[address] Mistry.
Plan
.
Surgery / Date: 07/23/[address] Toni [address] Dr. Mistry
DVT Prophylaxis: Other (ASA & Plavix )
Activity:
Out of bed.
PT/OT.
WBAT RLE w/ walker for assistance. THP's.
Discharge Plan: Other
Discharge Information:
Appreciate CM.
Subjective
.
.:
Patient resting comfortably.
Vital Signs and Labs
.
Vital Signs and Labs:
Lab Results
07/23/25 06:16
07/21/25 09:07
Temp Pulse Resp BP Pulse Ox
98 F 60 16 169/93 95
07/24/25 07:40 07/24/25 07:40 07/24/25 07:40 07/24/25 07:40 07/24/25 07:40
Non-invasive Hgb result: 10.8
[2025-07-24] MEDS: PROCARDIA XL (EXTENDED RELEASE) 30 MG PO (08:34)
[2025-07-24] MEDS: LIPITOR 40 MG PO (08:35)
[2025-07-24] MEDS: BACTROBAN 2% OINTMENT 1 APPLIC NASAL ×2 (08:35→20:21)
[2025-07-24] MEDS: SENOKOT 17.2 MG PO ×2 (08:35→20:20)
[2025-07-24] MEDS: PLAVIX 75 MG PO (08:35)
[2025-07-24] MEDS: COLACE 100 MG PO ×2 (08:35→20:20)
[2025-07-24] MEDS: METHADONE 100 MG/10 ML 155 MG PO (08:40)
[2025-07-24] MEDS: ASPIRIN PO (08:45)
[2025-07-24] MEDS: LOW STRENGTH ASPIRIN 81 MG PO (08:52)
--- NOTE | 2025-07-24 10:04 | W.PN.HOSP.TC ---
Today's Communication/Plan
-
Continue current care
Assessment / Plan
Assessment / Plan
Gen-awake, alert, NAD
HEENT-NC, AT, anicteric, clear oral mm
Neck-supple
CV-reg, no M, +S1/S2
Lungs-clear B/L
Abd-soft, NT, ND
Ext-no edema
Musculoskeletal-no cyanosis, clubbing, bilateral lower extremities are curled up
Skin-warm and dry
Neuro-grossly non-focal
Psych-calm, cooperative
Acute traumatic right femoral neck fracture -stable after right hip hemiarthroplasty, 07/23.
Continue PT/OT, analgesics. Orthopedics has ordered knee immobilizer, patient unable to tolerate abductor pillow.
History of strokes -apparently diagnosed on recent MRI 3 weeks ago, approximately June 26. Do not have access to records. Has been on aspirin and Plavix for the past 3 weeks, started by PCP, with plans for 21 days of dual antiplatelet therapy.
Moving forward can discontinue Plavix and continue aspirin. Discussed with patient's sister.
Elevated blood pressure -suspect undiagnosed/untreated essential hypertension, especially in light of recent diagnosis of strokes. Unfortunately family does not check his blood pressure at home. Continue Procardia XL. Recommend close outpatient
follow-up. Suspect acute pain is exacerbating his blood pressure.
Patient was hypotensive yesterday afternoon due to effects of anesthesia during surgery. Subsequent blood pressures are again elevated.
Hypothermia -resolved. TSH and cortisol normal.
Normocytic anemia -presumably chronic. Monitor for now.
Tobacco dependence -smoking cessation advised.
Opiate dependence -history of heroin abuse. Continue methadone.
Underweight -BMI 18. High risk for malnutrition. Tax Economist consulted and following.
Mild cognitive impairment
DNR
Dispo -anticipate SNF on discharge.
Anticipated Discharge: 24 - 48 hours
Subjective/Interval History
-
Date of Service: July 24, 2025
Patient seen and examined. Complaining of right hip pain. Both legs are flexed at the hips and knees in bed.
Objective Data
-
Vital Signs:
Vital Signs
Temp Pulse Resp BP Pulse Ox
98 F 60 16 169/93 95
07/24/25 07:40 07/24/25 08:34 07/24/25 07:40 07/24/25 08:34 07/24/25 07:40
I&O
07/23/25 07/24/25 07/25/25
06:59 06:59 05:59
Intake Total 907 / 907
Balance 907 / 907
Review of Systems
-
History Source: Patient
All other systems: Reviewed and negative
[2025-07-25 07:00] VITALS: BP 147/78
--- NOTE | 2025-07-25 08:18 | W.PN.ORTHO ---
Today's Communication / Plan
-
65-year-old male POD #2 Right Hip Toni 07/23/[address] Mistry.
- For the time being, patient to be NPO. Clinically, RLE is slightly shortened and internally rotated; although knee contracture is present. Will obtain STAT x-ray of right hip to r/o dislocation.
- If no dislocation present, WBAT RLE w/ use of walker for ambulatory assistance.
- PT/OT; THP's. Patient was unable to tolerate abductor pillow lying in bed. Better tolerating KI. Please stress the importance of posterior hip precautions as patient demonstrates limited compliance.
- DVT Prophylaxis: Discussed with Dr. Alcala. Will proceed with ASA 325mg once daily x 30 days. Plavix D/C.
- Pain control per primary team. Ice therapy for edema/pain.
- Appreciate CM regarding D/C planning.
- Orthopedic surgery will continue to follow along pending x-ray findings.
UPDATE: STAT x-ray personally reviewed. Hemiarthroplasty intact without any evidence for dislocation. Patient may have a diet. Orthopedic surgery will sign off at this time. Please re-engage with any further questions or concerns
Assessment
.
Distal Motor Intact: Yes
Dressing:
Primaseal dressing with mild contained bloody drainage about the middle aspect.
Patient lying in bed with KI intact to RLE. Knee contracture present. Slightly short and internally rotated about RLE.
Able to plantarflex and dorsiflex right ankle.
Calf is soft and nontender to palpation.
Assessment:
POD #2 Right Hip Hemiarthroplasty 07/23/[address] Mistry.
Plan
.
Surgery / Date: 07/23/2025 R Hip Toni with Dr. Mistry
DVT Prophylaxis: Aspirin
Activity:
Out of bed.
PT/OT.
WBAT RLE w/ walker for assistance. THP's.
Discharge Plan: Other
Discharge Information:
Appreciate CM.
Subjective
.
.:
Patient resting comfortably in bed. Eliane (sister) at bedside. Reports that his pain is controlled at rest. Reports increased pain with movement and ambulation. Worked with PT/OT yesterday; limited from bed to chair. Better tolerating knee
immobilizer.
Vital Signs and Labs
.
Vital Signs and Labs:
Lab Results
07/21/25 09:07
Temp Pulse Resp BP Pulse Ox
98.5 F 60 14 147/78 100
07/25/25 07:00 07/25/25 07:00 07/25/25 07:00 07/25/25 07:00 07/25/25 07:00
Non-invasive Hgb result: 10.8
[2025-07-25 08:33] LABS: Hematocrit 28.1 % (39.0-52.0); Hemoglobin 8.6 g/dL (13.0-18.0)
[2025-07-25] MEDS: COLACE 100 MG PO ×2 (08:51→20:31)
[2025-07-25] MEDS: LIPITOR 40 MG PO (08:51)
[2025-07-25] MEDS: METHADONE 100 MG/10 ML 155 MG PO (08:51)
[2025-07-25] MEDS: PROCARDIA XL (EXTENDED RELEASE) 30 MG PO (08:52)
[2025-07-25] MEDS: SENOKOT 17.2 MG PO ×2 (08:52→20:31)
[2025-07-25 09:11] VITALS: BP 130/79; BP 158/92; PULSE 55; O2SAT 100
[2025-07-25] MEDS: ASPIRIN 325 MG PO (09:11)
--- NOTE | 2025-07-25 13:07 | W.PN.HOSP.TC ---
Today's Communication/Plan
-
Monitor hemoglobin
Anemia labs
Heme test stools
Assessment / Plan
Assessment / Plan
Gen-awake, alert, NAD
HEENT-NC, AT, anicteric, clear oral mm
Neck-supple
CV-reg, no M, +S1/S2
Lungs-clear B/L
Abd-soft, NT, ND
Ext-no edema
Musculoskeletal-no cyanosis, clubbing, bilateral lower extremities are curled up
Skin-warm and dry
Neuro-grossly non-focal
Psych-calm, cooperative
Acute traumatic right femoral neck fracture -stable after right hip hemiarthroplasty, 07/23.
Continue PT/OT, analgesics. Orthopedics has ordered knee immobilizer, patient unable to tolerate abductor pillow.
History of strokes -apparently diagnosed on recent MRI 3 weeks ago, approximately June 26. Do not have access to records. Has been on aspirin and Plavix for the past 3 weeks, started by PCP, with plans for 21 days of dual antiplatelet therapy.
Moving forward can discontinue Plavix and continue aspirin. Discussed with patient's sister.
Elevated blood pressure -suspect undiagnosed/untreated essential hypertension, especially in light of recent diagnosis of strokes. Unfortunately family does not check his blood pressure at home. Continue Procardia XL. Recommend close outpatient
follow-up. Suspect acute pain is exacerbating his blood pressure.
Patient was hypotensive 07/23 afternoon due to effects of anesthesia during surgery. Subsequent blood pressures are again elevated.
Hypothermia -resolved. TSH and cortisol normal.
Acute on chronic normocytic anemia -acute anemia noted, hemoglobin 8.6 this morning. Suspect acute blood loss anemia due to hip fracture and operative blood loss.
Check anemia labs. Stools have been brown but will heme test stools.
Tobacco dependence -smoking cessation advised.
Opiate dependence -history of heroin abuse. Continue methadone.
Underweight -BMI 18. High risk for malnutrition. Environmental Scientist consulted and following.
Mild cognitive impairment
DNR
Dispo -anticipate SNF on discharge.
Anticipated Discharge: Within 24 hours
Subjective/Interval History
-
Date of Service: July 25, 2025
Patient seen and examined. No complaints.
Objective Data
-
Labs:
Laboratory Results
07/25/25
07:29
Hgb 8.6 L D
Hct 28.1 L
Vital Signs:
Vital Signs
Temp Pulse Resp BP Pulse Ox
98.5 F 60 14 147/78 100
07/25/25 07:00 07/25/25 07:00 07/25/25 07:00 07/25/25 08:52 07/25/25 07:00
I&O
07/24/25 07/25/25 07/26/25
06:59 05:59 06:59
Intake Total 960 / 960
Output Total 950 / 950
Balance
Review of Systems
-
History Source: Patient
All other systems: Reviewed and negative
[2025-07-25 13:53] LABS: Iron < 20 ug/dl (49-181)
[2025-07-25 14:02] LABS: Total Iron Binding Capacity 302 ug/dl (261-462)
[2025-07-25 14:31] LABS: Ferritin 45.8 ng/ml (17.9-464.0)
[2025-07-25 15:00] VITALS: BP 93/54
[2025-07-25 15:02] LABS: Folate 2.6 ng/ml (2.76-20); Vitamin B12 367 pg/ml (239-931)
[2025-07-25] MEDS: FOLVITE 1 MG PO (15:29)
[2025-07-25] MEDS: DILAUDID 0.5 MG IV (16:41)
[2025-07-25 23:00] VITALS: BP 125/80
[2025-07-26 07:13] LABS: Hematocrit 29.3 % (39.0-52.0); Hemoglobin 9.3 g/dL (13.0-18.0); Mean Corp Hgb Conc. 31.7 g/dL (33.0-37.0); Mean Corpuscular Volume 81.8 fL (80.0-94.0); Nucleated Red Blood Cells % 0 % (-); Platelet Count 221 10^3/uL (130-400); Red Cell Dist. Width 16.3 % (11.5-14.5)
[2025-07-26 07:30] VITALS: BP 142/78
[2025-07-26] MEDS: METHADONE 100 MG/10 ML 155 MG PO (08:37)
[2025-07-26] MEDS: FOLVITE 1 MG PO (08:41)
[2025-07-26] MEDS: SENOKOT 17.2 MG PO ×2 (08:41→19:42)
[2025-07-26] MEDS: PROCARDIA XL (EXTENDED RELEASE) 30 MG PO (08:41)
[2025-07-26] MEDS: LIPITOR 40 MG PO (08:42)
[2025-07-26] MEDS: COLACE 100 MG PO ×2 (08:42→19:42)
[2025-07-26] MEDS: ASPIRIN 325 MG PO (08:42)
--- NOTE | 2025-07-26 08:55 | W.PN.HOSP.TC ---
Today's Communication/Plan
-
Medically cleared for discharge. Discharge plan
Assessment / Plan
Assessment / Plan
Gen-awake, alert, NAD
HEENT-NC, AT, anicteric, clear oral mm
Neck-supple
CV-reg, no M, +S1/S2
Lungs-clear B/L
Abd-soft, NT, ND
Ext-no edema
Musculoskeletal-no cyanosis, clubbing, postop findings right hip
Skin-warm and dry
Neuro-grossly non-focal
Psych-calm, cooperative
Acute traumatic right femoral neck fracture -stable after right hip hemiarthroplasty, 07/23.
Continue PT/OT, analgesics. Orthopedics signed off. Medically clear for discharge. Discussed with sister at bedside today. Waiting for case management for discharge disposition.
History of strokes -apparently diagnosed on recent MRI 3 weeks ago, approximately June 26. Do not have access to records. Has been on aspirin and Plavix for the past 3 weeks, started by PCP, with plans for 21 days of dual antiplatelet therapy.
Moving forward can discontinue Plavix and continue aspirin. Discussed with patient's sister.
Elevated blood pressure -suspect undiagnosed/untreated essential hypertension, especially in light of recent diagnosis of strokes. Unfortunately family does not check his blood pressure at home. Continue Procardia XL. Recommend close outpatient
follow-up. Suspect acute pain is exacerbating his blood pressure.
Patient was hypotensive 07/23 afternoon due to effects of anesthesia during surgery. Subsequent blood pressures are again elevated.
Hypothermia -resolved. TSH and cortisol normal.
Acute on chronic normocytic anemia -acute anemia noted, hemoglobin 9.3 this morning. Suspect acute blood loss anemia due to hip fracture and operative blood loss.
Check anemia labs and some element of iron deficiency anemia and folic acid deficiency. Heme stools not needed but if ordered can follow-up as outpatient.
Tobacco dependence -smoking cessation advised.
Opiate dependence -history of heroin abuse. Continue methadone.
Underweight -BMI 18. High risk for malnutrition. Supervisor Pipeline Maintenance consulted and following.
Mild cognitive impairment
DNR
Dispo -anticipate SNF on discharge.
Total time spent on today's encounter was 36 minutes which included time spent in counseling the patient/family regarding diagnosis and treatment plan as listed above, goals of care, and symptom management. Case was discussed with nursing staff,
specialists, and care coordinators/case management. All labs and imaging personally reviewed by me. Remainder the time spent in detailed review of previous records, lab data, imaging, and other medical provider documentation.
Anticipated Discharge: Today
Subjective/Interval History
-
Date of Service: July 26, 2025
No chest pain or shortness of breath. Afebrile
Objective Data
-
Labs:
Laboratory Results
07/26/25
06:23
WBC 6.2
Hgb 9.3 L
Hct 29.3 L
Plt Count 221 D
Vital Signs:
Vital Signs
Temp Pulse Resp BP Pulse Ox
98.5 F 60 16 142/78 96
07/26/25 07:30 07/26/25 07:30 07/26/25 07:30 07/26/25 07:30 07/26/25 07:30
I&O
07/25/25 07/26/25 07/27/25
05:59 06:59 06:59
Intake Total 960 / 960 720 / 720
Output Total 950 / 950
Balance 720 / 720
[2025-07-26 11:44] VITALS: BP 141/84; PULSE 64; O2SAT 94
--- NOTE | 2025-07-26 12:42 | CM ---
Addendum entered by Melissa Ellison 07/26/25 16:42:
No local facilities are able to offer a bed at this time due to pt's need for methadone management. CM to f/u in AM to discuss with pt and sister about additional facilities.
Original Note:
CM following for discharge to SNF s/p R tequila arthroplasty. CM met with Jonathan and his sister this AM. SNF referrals sent; awaiting responses.
[2025-07-26 13:08] VITALS: BP 141/84; PULSE 64; O2SAT 94
[2025-07-26 15:00] VITALS: BP 128/72
[2025-07-26 23:09] VITALS: BP 133/76
[2025-07-27] VITALS (9 sets, daily range): BP systolic 80–164; BP diastolic 53–82; PULSE 64–88
[2025-07-27] MEDS: ASPIRIN 325 MG PO (08:07)
[2025-07-27] MEDS: PROCARDIA XL (EXTENDED RELEASE) 30 MG PO (08:08)
[2025-07-27] MEDS: SENOKOT 17.2 MG PO ×2 (08:08→19:27)
[2025-07-27] MEDS: FOLVITE 1 MG PO (08:08)
[2025-07-27] MEDS: COLACE 100 MG PO ×2 (08:08→19:27)
[2025-07-27] MEDS: LIPITOR 40 MG PO (08:08)
[2025-07-27] MEDS: METHADONE 100 MG/10 ML 155 MG PO (08:09)
--- NOTE | 2025-07-27 08:51 | W.PN.HOSP.TC ---
Today's Communication/Plan
-
IV fluids. Discharge planning
Assessment / Plan
Assessment / Plan
Gen-awake, alert, NAD
HEENT-NC, AT, anicteric, clear oral mm
Neck-supple
CV-reg, no M, +S1/S2
Lungs-clear B/L
Abd-soft, NT, ND
Ext-no edema
Musculoskeletal-no cyanosis, clubbing, postop findings right hip
Skin-warm and dry
Neuro-grossly non-focal
Psych-calm, cooperative
Acute traumatic right femoral neck fracture -stable after right hip hemiarthroplasty, 07/23.
Continue PT/OT, analgesics. Orthopedics signed off. Medically clear for discharge. Discussed with sister at bedside yesterday. Waiting for case management for discharge disposition.
Hypotension-asymptomatic. Give IV fluids bolus 1 L and reevaluate. Hold Procardia. Check orthostasis.
History of strokes -apparently diagnosed on recent MRI 3 weeks ago, approximately June 26. Do not have access to records. Has been on aspirin and Plavix for the past 3 weeks, started by PCP, with plans for 21 days of dual antiplatelet therapy.
Moving forward can discontinue Plavix and continue aspirin. Discussed with patient's sister.
Elevated blood pressure but no formal diagnosis of hypertension-was started on Procardia but might not need so we will start
Hypothermia -resolved. TSH and cortisol normal.
Acute on chronic normocytic anemia -acute anemia noted, hemoglobin 8.9 this morning. Suspect acute blood loss anemia due to hip fracture and operative blood loss.
Check anemia labs and some element of iron deficiency anemia and folic acid deficiency. Monitor CBC closely.
Tobacco dependence -smoking cessation advised.
Opiate dependence -history of heroin abuse. Continue methadone.
Underweight -BMI 18. High risk for malnutrition. Airflight Attendants Supervisor consulted and following.
Mild cognitive impairment
DNR
Dispo -anticipate SNF on discharge.
Total time spent on today's encounter was 36 minutes which included time spent in counseling the patient/family regarding diagnosis and treatment plan as listed above, goals of care, and symptom management. Case was discussed with nursing staff,
specialists, and care coordinators/case management. All labs and imaging personally reviewed by me. Remainder the time spent in detailed review of previous records, lab data, imaging, and other medical provider documentation.
Anticipated Discharge: Today
Subjective/Interval History
-
Date of Service: July 27, 2025
Patient denies any new complaints. No chest pain shortness of breath or lightheadedness
Objective Data
-
Vital Signs:
Vital Signs
Temp Pulse Resp BP Pulse Ox
97.8 F 59 16 164/81 99
07/27/25 07:50 07/27/25 08:08 07/27/25 07:50 07/27/25 08:08 07/27/25 07:50
I&O
07/26/25 07/27/25 07/28/25
06:59 06:59 06:59
Intake Total 720 / 720 240 / 240
Output Total 125 / 125
Balance 720 / 720 115 / 115
[2025-07-27 10:02] LABS: Hematocrit 29.0 % (39.0-52.0); Hemoglobin 8.9 g/dL (13.0-18.0); Mean Corp Hgb Conc. 30.7 g/dL (33.0-37.0); Mean Corpuscular Volume 85.0 fL (80.0-94.0); Platelet Count 232 10^3/uL (130-400); Red Cell Dist. Width 16.2 % (11.5-14.5)
[2025-07-27 10:26] LABS: Blood Urea Nitrogen 20 mg/dl (9-20); Calcium 8.3 mg/dl (8.4-10.2); Carbon Dioxide 28 mmol/L (22-30); Chloride 100 mmol/L (98-107); Estimated Creatinine Clearance 75 ml/min; Glucose 85 mg/dl (70-99); Potassium 3.6 mmol/L (3.5-5.1); Sodium 134 mmol/L (135-145); eGFR > 60.00
[2025-07-27] MEDS: MILK OF MAGNESIA 30 ML PO (14:30)
[2025-07-27] MEDS: NSS 1000 IV (15:13)
[2025-07-27] MEDS: FLOMAX 0.4 MG PO (17:18)
[2025-07-28] VITALS (7 sets, daily range): BP systolic 123–185; BP diastolic 87–95; PULSE 60–79; O2SAT 95
[2025-07-28 07:54] LABS: Hematocrit 25.8 % (39.0-52.0); Hemoglobin 8.2 g/dL (13.0-18.0); Mean Corp Hgb Conc. 31.8 g/dL (33.0-37.0); Mean Corpuscular Volume 82.7 fL (80.0-94.0); Platelet Count 220 10^3/uL (130-400); Red Cell Dist. Width 16.2 % (11.5-14.5)
[2025-07-28] MEDS: ASPIRIN 325 MG PO (07:57)
[2025-07-28] MEDS: METHADONE 100 MG/10 ML 155 MG PO (07:57)
[2025-07-28] MEDS: FLOMAX 0.4 MG PO (07:57)
[2025-07-28] MEDS: FOLVITE 1 MG PO (07:57)
[2025-07-28] MEDS: SENOKOT 17.2 MG PO ×2 (07:57→19:50)
[2025-07-28] MEDS: LIPITOR 40 MG PO (07:57)
[2025-07-28] MEDS: COLACE 100 MG PO ×2 (07:57→19:50)
[2025-07-28 08:27] LABS: Blood Urea Nitrogen 17 mg/dl (9-20); Calcium 8.1 mg/dl (8.4-10.2); Carbon Dioxide 27 mmol/L (22-30); Chloride 102 mmol/L (98-107); Estimated Creatinine Clearance 88 ml/min; Glucose 105 mg/dl (70-99); Potassium 3.5 mmol/L (3.5-5.1); Sodium 131 mmol/L (135-145); eGFR > 60.00
[2025-07-28 08:52] LABS: Cortisol, Random 16.2 ug/dl
--- NOTE | 2025-07-28 12:03 | W.PN.HOSP.TC ---
Today's Communication/Plan
-
Monitor blood pressure. Straight cath as needed. Discharge planning
Assessment / Plan
Assessment / Plan
Gen-awake, alert, NAD
HEENT-NC, AT, anicteric, clear oral mm
Neck-supple
CV-reg, no M, +S1/S2
Lungs-clear B/L
Abd-soft, NT, ND
Ext-no edema
Musculoskeletal-no cyanosis, clubbing, postop findings right hip
Skin-warm and dry
Neuro-grossly non-focal
Psych-calm, cooperative
A/P:
Acute traumatic right femoral neck fracture -stable after right hip hemiarthroplasty, 07/23.
Continue PT/OT, analgesics. Orthopedics signed off. Medically clear for discharge. Discussed with sister at bedside yesterday. Waiting for case management for discharge disposition.
Hypotension-asymptomatic and improved. Given IV fluids bolus 1 L yesterday. Discontinued Procardia. Check orthostasis. Cortisol level remains 16.2 (47 prior). Blood pressure 123/87 today.
Urinary retention-straight cath as needed. Started on Flomax. If multiple straight cath might consider Barfield catheter.
History of strokes -apparently diagnosed on recent MRI 3 weeks ago, approximately June 26. Do not have access to records. Has been on aspirin and Plavix for the past 3 weeks, started by PCP, with plans for 21 days of dual antiplatelet therapy.
Moving forward can discontinue Plavix and continue aspirin. Discussed with patient's sister.
Elevated blood pressure but no formal diagnosis of hypertension-was started on Procardia but discontinued. Blood pressure 123/87 this morning off medications.
Hypothermia -resolved. TSH and cortisol normal.
Acute on chronic normocytic anemia -acute anemia noted, hemoglobin 8.2 this morning. Suspect acute blood loss anemia due to hip fracture and operative blood loss.
Check anemia labs and some element of iron deficiency anemia and folic acid deficiency. Monitor CBC closely.
Tobacco dependence -smoking cessation advised.
Opiate dependence -history of heroin abuse. Continue methadone.
Underweight -BMI 18. High risk for malnutrition. Waste Machine Offbearer consulted and following.
Mild cognitive impairment
DNR
Dispo -anticipate SNF on discharge.
Total time spent on today's encounter was 36 minutes which included time spent in counseling the patient/family regarding diagnosis and treatment plan as listed above, goals of care, and symptom management. Case was discussed with nursing staff,
specialists, and care coordinators/case management. All labs and imaging personally reviewed by me. Remainder the time spent in detailed review of previous records, lab data, imaging, and other medical provider documentation.
Anticipated Discharge: 24 - 48 hours
Subjective/Interval History
-
Date of Service: July 28, 2025
No new complaints today. Retaining urine. Blood pressure improved.
Objective Data
-
Labs:
Laboratory Results
07/28/25
07:00
WBC 6.6
Hgb 8.2 L
Hct 25.8 L
Plt Count 220
Sodium 131 L
Potassium 3.5
Chloride 102
Carbon Dioxide 27
BUN 17
Creatinine 0.6 L
Glucose 105 H
Calcium 8.1 L
Vital Signs:
Vital Signs
Temp Pulse Resp BP Pulse Ox
98 F 79 16 123/87 99
07/28/25 07:45 07/28/25 10:20 07/28/25 07:45 07/28/25 10:20 07/28/25 07:45
I&O
07/27/25 07/28/25 07/29/25
06:59 06:59 06:59
Intake Total 240 / 240 2290 / 2290 240 / 240
Output Total 125 / 125 850 / 850 500 / 500
Balance 115 / 115 1440 / 1440 -260 / -260
[2025-07-28] MEDS: MILK OF MAGNESIA 30 ML PO (14:34)
--- NOTE | 2025-07-28 14:55 | CM ---
CM following re: discharge planning.
Reviewed pt's chart, met with pt and pt;'s sister Sarita at bedside.
Both t and his sister are informed that requested SNFs denied a referral. Reason of denials explained. Following SNFs preferred: [facility], [facility], [facility], [facility], [facility]. A referral to above SNFs
made. Awaiting for determination.
Pt stated he is receiving his methadone treatment at methadone clinic in [place].
D/C plan: preferred SNF.
CM will follow to assist pt with discharge to a preferred and accepted SNF.
[2025-07-29 06:24] LABS: Hematocrit 27.5 % (39.0-52.0); Hemoglobin 8.8 g/dL (13.0-18.0); Mean Corp Hgb Conc. 32.0 g/dL (33.0-37.0); Mean Corpuscular Volume 83.3 fL (80.0-94.0); Platelet Count 243 10^3/uL (130-400); Red Cell Dist. Width 15.8 % (11.5-14.5)
[2025-07-29 07:00] LABS: Blood Urea Nitrogen 10 mg/dl (9-20); Calcium 8.2 mg/dl (8.4-10.2); Carbon Dioxide 30 mmol/L (22-30); Chloride 101 mmol/L (98-107); Estimated Creatinine Clearance 75 ml/min; Glucose 84 mg/dl (70-99); Potassium 3.9 mmol/L (3.5-5.1); Sodium 135 mmol/L (135-145); eGFR > 60.00
[2025-07-29 08:00] VITALS: BP 170/92
[2025-07-29] MEDS: METHADONE 100 MG/10 ML 155 MG PO (08:39)
[2025-07-29 08:40] VITALS: BP 170/92
[2025-07-29] MEDS: ASPIRIN 325 MG PO (08:40)
[2025-07-29] MEDS: FLOMAX 0.4 MG PO (08:40)
[2025-07-29] MEDS: LIPITOR 40 MG PO (08:40)
[2025-07-29] MEDS: SENOKOT 17.2 MG PO (08:40)
[2025-07-29] MEDS: FOLVITE 1 MG PO (08:41)
[2025-07-29] MEDS: COLACE 100 MG PO (08:41)
--- NOTE | 2025-07-29 09:08 | CM ---
Addendum entered by Brit Mo 07/29/25 14:20:
patient and sister notified of ambulance poultry picker time
Addendum entered by Birt Mo 07/29/25 14:18:
Ambulance poultry picker 1600; facility notified
Addendum entered by Brit Mo 07/29/25 13:23:
IMM benefit explained; form signed
Addendum entered by Brit Mo 07/29/25 13:19:
[facility]
Report # [phone]

Addendum entered by Brit Mo 07/29/25 13:07:
Met with patient and his sister, Eliane, at the bedside; [facility] web content coordinator was on speaker phone; SNF can accept patient today. Attending notified
Sister confirmed that patient is active with [facility]; also reported that doses of Methadone in a locked box at home is available if [facility] wants patient's brother to deliver to the facility.
Plan: Discharge to [facility] today via Ambulance
Addendum entered by Brit Mo 07/29/25 10:29:
Patient verified location of his Methadone Clinic:
[facility]
Address: [address] [place] [address] # [facility], [place] [address]

[facility] will call clinic to coordinate pharmacy service; if service can be supported today, patient will discharge to SNF
Plan: Discharge to [facility] via ambulance pending appointment availability at the [facility]
Original Note:
[facility] accepted patient.
CM spoke with Admission coordinator, Marycruz @ #[phone]. She needed prescribing verification for Methadone. Per Attending, patient's order for Methadone is once daily.
Patient will need to go to his outpatient methadone clinic once a week to obtain doses needed for the week.
[2025-07-29 09:37] VITALS: BP 151/80; BP 153/95; BP 171/95
--- NOTE | 2025-07-29 11:54 | W.PN.HOSP.TC ---
Today's Communication/Plan
-
Discharge planning
Assessment / Plan
Assessment / Plan
Gen-awake, alert, NAD
HEENT-NC, AT, anicteric, clear oral mm
Neck-supple
CV-reg, no M, +S1/S2
Lungs-clear B/L
Abd-soft, NT, ND
Ext-no edema
Musculoskeletal-no cyanosis, clubbing, postop findings right hip
Skin-warm and dry
Neuro-grossly non-focal
Psych-calm, cooperative
A/P:
Acute traumatic right femoral neck fracture -stable after right hip hemiarthroplasty, 07/23.
Continue PT/OT, analgesics. Orthopedics signed off. Medically clear for discharge. Discussed with sister at bedside prior. Waiting for case management for discharge disposition.
Hypotension-asymptomatic and improved. Given IV fluids bolus 1 L prior. Discontinued Procardia. Check orthostasis. Cortisol level remains 16.2 (47 prior).
Urinary retention-Place Barfield catheter today and void trial as outpatient in 5 to 7 days. Continue on Flomax.
History of strokes -apparently diagnosed on recent MRI 3 weeks ago, approximately June 26. Do not have access to records. Has been on aspirin and Plavix for the past 3 weeks, started by PCP, with plans for 21 days of dual antiplatelet therapy.
Moving forward can discontinue Plavix and continue aspirin. Discussed with patient's sister.
Elevated blood pressure but no formal diagnosis of hypertension-was started on Procardia but discontinued. Blood pressure 123/87 yesterday morning off medications.
Hypothermia -resolved. TSH and cortisol normal.
Acute on chronic normocytic anemia -acute anemia noted, hemoglobin 8.8 this morning. Suspect acute blood loss anemia due to hip fracture and operative blood loss.
Check anemia labs and some element of iron deficiency anemia and folic acid deficiency. Monitor CBC closely.
Tobacco dependence -smoking cessation advised.
Opiate dependence -history of heroin abuse. Continue methadone.
Underweight -BMI 18. High risk for malnutrition. Laundry Machine Mechanic consulted and following.
Mild cognitive impairment
DNR
Dispo -anticipate SNF on discharge.
Total time spent on today's encounter was 35 minutes which included time spent in counseling the patient/family regarding diagnosis and treatment plan as listed above, goals of care, and symptom management. Case was discussed with nursing staff,
specialists, and care coordinators/case management. All labs and imaging personally reviewed by me. Remainder the time spent in detailed review of previous records, lab data, imaging, and other medical provider documentation.
Anticipated Discharge: Today
Subjective/Interval History
-
Date of Service: July 29, 2025
Patient retaining urine again today. Blood pressure very labile but with urinary retention understandably high. No chest pain or shortness of breath. Afebrile
Objective Data
-
Labs:
Laboratory Results
07/29/25
05:49
WBC 7.1
Hgb 8.8 L
Hct 27.5 L
Plt Count 243
Sodium 135
Potassium 3.9
Chloride 101
Carbon Dioxide 30
BUN 10
Creatinine 0.7
Glucose 84
Calcium 8.2 L
Vital Signs:
Vital Signs
Temp Pulse Resp BP Pulse Ox
98.5 F 56 16 170/92 96
07/29/25 08:00 07/29/25 08:00 07/29/25 08:00 07/29/25 08:00 07/29/25 08:32
I&O
07/28/25 07/29/25 07/30/25
06:59 06:59 06:59
Intake Total 2290 / 2290 960 / 960
Output Total 850 / 850 950 / 950 750 / 750
Balance 1440 / 1440 -750 / -750
--- NOTE | 2025-07-29 12:49 | W.DCSUMMARY ---
Discharge Summary
Discharge Data
Date of Admission: 07/21/25
Date of Discharge: 07/29/25
Total time spent discharging patient (in min): 32
-
Pending Results: No
Hospital Course
Patient is 65 years old male with history of chronic pain syndrome and polysubstance abuse on methadone, CVA, came into the hospital after a fall sustaining a right hip fracture. Patient underwent right hip hemiarthroplasty on 07/21. He had some
variation in his blood pressure many times low blood pressure and sometimes high blood pressure. It was felt that his blood pressure elevations were more circumstantially and he does not quite qualify for antihypertensive at the moment and we will
need to follow-up as outpatient once he is more stable if he does require any antihypertensives. He also had some urinary retention for which he had a Barfield catheter in place with a goal of removing the Barfield catheter over the next several days and
instructions were placed on his discharge module. Patient also had some mild acute blood loss anemia. He also was recommended full dose of aspirin for DVT prophylaxis and after completion he can switch back to baby aspirin for stroke prevention.
Patient will be discharged to skilled facility in relatively stable condition today.
Discharge duration: 32 minutes
Discharge Plan
-
Patient Disposition: Longterm/SNF
Discharge Diagnosis/Procedures: Right hip fracture status post right hip hemiarthroplasty. Acute blood loss anemia. Folate deficiency. Hypothermia. Opiate dependence. Underweight.
Diet: Regular
Activity: As tolerated
Blood Work: Please PCP to order CBC, BMP within 1 week
Activity Restrictions/Additional Instructions:
Continue Barfield catheter for urinary retention and remove Barfield catheter over the next 5 to 7 days for a void trial.
Referrals:
Basilia Quinn, DO [Family Provider] - in less than 1 week
Prescriptions:
New
aspirin 325 mg Tablet
325 mg PO DAILY 30 Days Qty: 30 0RF
docusate sodium 100 mg Capsule
100 mg PO BID 10 Days Qty: 20 0RF
folic acid 1 mg Tablet
1 mg PO DAILY 30 Days Qty: 30 0RF
Continued
atorvastatin [Lipitor] 40 mg Tablet
40 mg PO DAILY
methadone 10 mg/mL Concentrate
155 mg PO DAILY Qty: 30 0RF
Patient Comments:
felipe currently going to [facility] phone [phone] fax [phone]
Held
aspirin 81 mg Tablet,Delayed Release (Dr/Ec)
81 mg PO DAILY
Hold Instructions: Resume on 08/26/25.
Discontinued
clopidogrel [Plavix] 75 mg Tablet
75 mg PO DAILY
Discharge Orders:
Discharge Patient (As Directed); Ordered 07/29/25
Ordered By: Hemal Burch
Discharge Date and Time
Discharge Date/Time: 07/29/25 16:45
Print Language: [id number]
[2025-07-29 15:44] VITALS: BP 124/79
== END 2025-07-29 16:45 | DRG 522 ==
LOC: 2 SOUTH 11:44
PROVIDERS: Physician Assistant; Specialist; ADMITTING PHYSICIAN Hospitalist; ATTENDING PHYSICIAN Hospitalist; CONSULT PHYSICIAN Orthopaedic Surgery Hand Surgery; EMERGENCY PHYSICIAN Emergency Medicine; FAMILY PHYSICIAN Family Medicine
PROC: 0SRR0J9 Replacement of Right Hip Joint, Femoral Surface with Synthetic Substitute, Cemented, Open Approach (ICD-10-PCS; 2025-07-23)
DX: S72.001A Fracture of unspecified part of neck of right femur, initial encounter for closed fracture (principal); D62 Acute posthemorrhagic anemia; F11.20 Opioid dependence, uncomplicated; Z68.1 Body mass index [BMI] 19.9 or less, adult; G89.4 Chronic pain syndrome; Z86.73 Personal history of transient ischemic attack (TIA), and cerebral infarction without residual deficits; W19.XXXA Unspecified fall, initial encounter; E53.8 Deficiency of other specified B group vitamins; R63.6 Underweight; M48.061 Spinal stenosis, lumbar region without neurogenic claudication; G31.84 Mild cognitive impairment of uncertain or unknown etiology; F17.200 Nicotine dependence, unspecified, uncomplicated; D72.829 Elevated white blood cell count, unspecified; Z66 Do not resuscitate; I10 Essential (primary) hypertension
CPT/HCPCS: 70450; 73501; 73502; 80048; 80053; 82533; 82607; 82728; 82746; 83540; 83550; 84443; 85014; 85018; 85025; 85027; 86850; 86900; 86901; 88305; 93005; 96374; 96375; 96376; 97110; 97116; 97163; 97167; 97530; 97535; 99285; 99406; C1713; C1776